=== PATIENT | male | born 1975 | race African-American/Black ===

== ENCOUNTER 2025-01-15 20:53 | Emergency (ER) | payer SELFPAY ==
[2025-01-15] MEDS ORDERED: Ketorolac Tromethamine 30 MG (1 mL) VIAL ONE (21:18)
== END 2025-01-15 21:35 | disposition home or self-care (01) ==
LOC: CSHERS 20:53
DX: S46.912A Strain of unspecified muscle, fascia and tendon at shoulder and upper arm level, left arm, initial encounter (principal); I10 Essential (primary) hypertension; X50.0XXA Overexertion from strenuous movement or load, initial encounter; Y93.E6 Activity, residential relocation
CPT/HCPCS: 96372; 99283; J1885